=== PATIENT | female | born 1995 | race Two or more races ===

== ENCOUNTER 2018-11-26 20:12 | Emergency (ER) | payer MEDICAID ==
[~2018-11-26] VITALS: Ht 152.4 cm; Wt 95.3 kg
--- NOTE | 2018-11-26 20:15 | NUR ---
Received pt. in 1B lying supine on gurney HOB elevated 20 degrees. 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 Awaiting to be seen by Dr. Whittaker.
[2018-11-26 21:02] LABS: BASOPHILS # (AUTO) 0.1 K/uL (0.0-8.0); BASOPHILS % (AUTO) 0.8 % (0.0-2.0); EOSINOPHILS # (AUTO) 0.5 K/uL (0.0-0.7); EOSINOPHILS % (AUTO) 5.4 % (0.0-7.0); HEMOGLOBIN 12.2 g/dL (10.9-14.3); LYMPHOCYTES % (AUTO) 34.4 % (20.5-51.5); MEAN CORPUSCULAR HEMOGLOBIN 26.1 uug (24.7-32.8); MEAN CORPUSCULAR HGB CONC 33 g/dL (32.3-35.6); MONOCYTES # (AUTO) 0.5 K/uL (2.0-10.0); MONOCYTES % (AUTO) 6.1 % (0.0-11.0); NEUTROPHILS # (AUTO) 4.7 K/uL (1.8-8.9); NEUTROPHILS % (AUTO) 53.3 % (38.5-71.5); PLATELET COUNT (AUTO) 343 K/uL (179-408); RED BLOOD CELL COUNT(AUTO) 4.69 MIL/uL (3.63-4.92); WHITE BLOOD COUNT (AUTO) 8.7 K/uL (3.8-11.8)
[2018-11-26 21:08] LABS: CARBON DIOXIDE 29 mmol/L (21-32); CHLORIDE 103 mmol/L (98-107); CREATININE 0.5 mg/dL (0.6-1.3); GLUCOSE 100 mg/dL (74-106); POTASSIUM 3.9 mmol/L (3.5-5.1); UREA NITROGEN, BLOOD 13 mg/dL (7-18)
[2018-11-26] MEDS ORDERED: HYDROCODONE/APAP 5-325MG TABLET ONE (22:59)
[2018-11-26] MEDS ORDERED: HYDROCODONE/APAP 5-325MG TABLET PO ONE (23:00)
== END 2018-11-26 23:17 | disposition home or self-care (01) ==
LOC: ER 20:13
DX: R51 Headache (principal); R11.0 Nausea; J45.909 Unspecified asthma, uncomplicated; F17.210 Nicotine dependence, cigarettes, uncomplicated; Z88.8 Allergy status to other drugs, medicaments and biological substances
CPT/HCPCS: 36415; 70450; 85025; A4663